=== PATIENT | female | born 1955 | race Caucasian/White ===

== ENCOUNTER 2021-06-19 10:49 | Emergency (ER) | payer MEDICARE, OTHER, SELFPAY ==
[~2021-06-19] VITALS: Ht 157.5 cm; Wt 60.4 kg
[2021-06-19 12:39] LABS: BASOPHILS % (AUTO) 1 % (0-1); EOSINOPHILS % (AUTO) 0 % (1-7); LYMPHOCYTES % (AUTO) 16 % (22-44); MEAN CORPUSCULAR HEMOGLOBIN 29.6 pg (27.0-34.8); MEAN CORPUSCULAR HGB CONC 35.4 g/dL (32.4-35.8); MEAN PLATELET VOLUME 8.9 fL (7.4-10.4); MONOCYTES % (AUTO) 4 % (2-9); NEUTROPHILS % (AUTO) 80 % (42-75); PLATELET COUNT 143 x10^3/uL (130-400); RED BLOOD COUNT 4.64 x10^6/uL (3.82-5.3); RED CELL DISTRIBUTION WIDTH 13.5 % (9.6-15.2)
[2021-06-19 12:51] LABS: ALBUMIN 3.3 g/dL (3.4-5.0); ANION GAP 7 mmol/L (5-15); CALCIUM 8.5 mg/dL (8.5-10.1); CHLORIDE 93 mmol/L (98-107)
[2021-06-19 12:55] LABS: ALANINE AMINOTRANSFERASE 33 U/L (12-78); ALKALINE PHOSPHATASE 87 U/L (45-117); BILIRUBIN,TOTAL 0.5 mg/dL (0.2-1.0); CREATININE 0.68 mg/dL (0.55-1.02); TOTAL PROTEIN 7.1 g/dL (6.4-8.2)
--- NOTE | 2021-06-19 20:57 | NUR ---
PT AMBULATORY TO ROOM 23 W/ C/O BODYACHES, COUGH, AND A LOW GRADE FEVER AT HOME. PT ALSO REPORTS THAT SHE HAS HAD "FIBROUS BM W/ WHAT LOOKS LIKE CHEWED UP TISSUE IN IT". PT HAS HAD N/V AND IS WORRIED FOR BLEEDING. PT RESTING ON GURNEY. NADN. MONITORS APPLIED. VSS. WARM BLANKET PROVIDED. CALL LIGHT IN REACH. CESAR JHAVERI AT BEDSIDE FOR EVAL.
[2021-06-19] MEDS ORDERED: MAALOX/HYOSCYAMINE/LIDOCAINE 45 ML BTL ONE (21:06)
[2021-06-19] MEDS ORDERED: ONDANSETRON 2MG/ML, 2ML ONE (21:06)
[2021-06-19] MEDS ORDERED: FAMOTIDINE 20 MG/2 ML ONE (21:06)
--- NOTE | 2021-06-19 21:11 | NUR ---
PT UP TO COMMODE TO TRY AND PROVIDE SAMPLES FOR UA AND STOOL. PT A&OX4 NO ACUTE DISTRESS AT THIS TIME. REPORT RECEIVED ON PT.
--- NOTE | 2021-06-19 21:16 | NUR ---
REPORT GIVEN TO ODIN ROBERT RN.
[2021-06-19] MEDS ORDERED: MAALOX/HYOSCYAMINE/LIDOCAINE 45 ML BTL PO ONE (21:30)
[2021-06-19] MEDS ORDERED: SODIUM CHLORIDE 0.9% 1,000ML IVBOLUS ONE (21:30)
[2021-06-19] MEDS ORDERED: ONDANSETRON 2MG/ML, 2ML IVPush ONE (21:30)
[2021-06-19] MEDS ORDERED: FAMOTIDINE 20 MG/2 ML IVPush ONE (21:30)
[2021-06-19] MEDS ORDERED: SODIUM CHLORIDE FLUSH 10ML SYR IVF ONE (21:30)
--- NOTE | 2021-06-19 21:37 | NUR ---
PT UNABLE TO PROVIDE STOOL SAMPLE AT THIS TIME.
[2021-06-19 21:48] LABS: MICROSCOPIC AUTO
--- NOTE | 2021-06-19 22:06 | NUR ---
PT RESTING COMFORTABLY, AND WAITING ON LAB AND US RESULTS FOR RECHECK.
[2021-06-19 23:20] VITALS: BP 118/64
--- NOTE | 2021-06-19 23:59 | NUR ---
F/U AND D/C INSTRUCTIONS WITH PRESCRIPTIONS GIVEN TO PT AND SHE V/U. PT AMBULATED TO DISCHARGE DESK.
== END 2021-06-20 00:01 | disposition home or self-care (01) ==
LOC: ED 11:00
DX: J18.9 Pneumonia, unspecified organism (principal); B34.9 Viral infection, unspecified; E87.1 Hypo-osmolality and hyponatremia; Z20.822 Contact with and (suspected) exposure to COVID-19
CPT/HCPCS: 36415; 71045; 76700; 80053; 81001; 83605; 83690; 84145; 85025; 87040; 87086; 93005; 96361; 96374; 96375; 99285; J2405; J7030; U0003; U0005